=== PATIENT | male | born 1990 | race Caucasian/White ===

== ENCOUNTER 2016-06-15 09:32 | Emergency (ER) | payer OTHER ==
--- NOTE | 2016-06-15 11:53 | ED.PDOC ---
History of Present Illness - General Chief Complaint: Post Op Problems Stated Complaint: coughing up blood s/p shoulder surgery Time Seen by Provider: 06/15/16 09:52 Source: patient Exam Limitations: no limitations - History of Present Illness Initial Comments: the patient is a 25-year-old male presenting to the emergency room secondary to coughing up blood for the last week. it has been intermittent and in small quantities. He is not experiencing chest pain or shortness of breath. The patient had his right shoulder operated on last week and did have general anesthesia for this. He started to develop these symptoms one day after the surgery. He has had his right shoulder immobilized since that time. He is not having unusual pain or swelling given the surgery. He is not having any pain or swelling in his lower extremities. No syncopal or near syncope. No palpitations. He does have a history of some sinus issues. Clinical exam does show some brown bloody drainage down the posterior oropharynx from the right nares. Nasal laryngoscopy performed by me shows no blood coming from around his vocal cords. He does have an area of bleeding in the right nares posteriorly. This is possibly from an NG tube or a nasopharyngeal tube used by anesthesia during the surgery. No anterior epistaxis. Timing/Duration: 1 week Severity: mild Improving Factors: nothing Worsening Factors: nothing Associated Symptoms: denies symptoms Allergies/Adverse Reactions: Allergies NO KNOWN ALLERGY Allergy (Verified 06/15/16 09:51) Home Medications: Ambulatory Orders Hydrocodone-Acetaminophen [Hydrocodone/Acetaminophen 7.5-325 mg] 1 tab PO PRN PRN 06/15/16 Ibuprofen 600 mg PO QID 06/15/16 Methocarbamol 500 mg PO PRN 06/15/16 Review of Systems - Review of Systems Constitutional: States: no symptoms reported EENTM: States: nose congestion, throat pain - since the surgery Respiratory: States: cough Cardiology: States: no symptoms reported Gastrointestinal/Abdominal: States: no symptoms reported Genitourinary: States: no symptoms reported Musculoskeletal: States: see HPI Skin: States: no symptoms reported Neurological: States: no symptoms reported Endocrine: States: no symptoms reported All other Systems: No Change from Baseline Past Medical History (General) - Patient Medical History Hx Asthma: No - Vaccination History Hx Influenza Vaccination: No Hx Pneumococcal Vaccination: No - Social History Hx Tobacco Use: No Hx Alcohol Use: No Hx Substance Use: No Hx Substance Use Treatment: No Hx Depression: No - Activities of Daily Living Hospice Agency (if applicable):: None - Female History Patient is a Female of Child Bearing Age (10 -59 yrs old): No Patient : No Family Medical History - Family History Mother Family History: Unknown Physical Exam - Physical Exam General Appearance: Alert, Comfortable, No apparent distress Eye Exam: bilateral normal Ears, Nose, Throat: hearing grossly normal, other - small amount of dried blood in the right posterior oropharynx. Nares is stated above. Neck: non-tender, full range of motion, supple Respiratory: chest non-tender, lungs clear, normal breath sounds, no respiratory distress, no accessory muscle use Cardiovascular/Chest: normal peripheral pulses, regular rate, rhythm, no edema Peripheral Pulses: radial,right: 2+, radial,left: 2+ Rectal Exam: deferred Back Exam: normal inspection, no CVA tenderness, no vertebral tenderness Extremity: no pedal edema, no calf tenderness, normal capillary refill, other - right upper extremity is immobilized of course no undue swelling. 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 The initial concern is of course for a DVT and pulmonary embolus. No d-dimer is done as the patient just had surgery. Right upper extremity venous Doppler is negative for any blood clot. Nasolaryngoscopy indicates that the bleeding is likely coming from the right nares posteriorly and draining down the posterior oropharynx and being coughed up. given these findings, I feel that the patient has low probability for a pulmonary embolus, and further exposure to significant radiation in the form of a CT scan at this time is not warranted given the associated risks. the patient needs to obtain some [place] nasal spray and put one to 2 sprays in each nares every couple of hours for the next 3-4 days. Additionally sleeping with a humidifier on may help. Recommend that he follow-up with his primary care doctor towards the end of the week. ER warnings were given for any significant worsening or change in symptoms. - Results/Orders Results/Orders: right upper extremity venous ultrasound showed no evidence of any venous thrombosis. Departure - Departure Clinical Impression: Posterior epistaxis Disposition: Discharge to Home or Self Care Condition: Fair Departure Forms: ED Discharge - Pt. Copy, Patient Portal Self Enrollment Instructions: DI for Nosebleed Diet: regular diet Activity: no pushing/pulling with affected limb Referrals: Venancio Shanks MD [Primary Care Provider] - 1-5 Days Home Medications: Ambulatory Orders Hydrocodone-Acetaminophen [Hydrocodone/Acetaminophen 7.5-325 mg] 1 tab PO PRN PRN 06/15/16 Ibuprofen 600 mg PO QID 06/15/16 Methocarbamol 500 mg PO PRN 06/15/16 Additional Instructions: the patient is a 25-year-old male presenting due to coughing up blood since his surgery last week. The initial concern is of course for a DVT and pulmonary embolus. No d-dimer is done as the patient just had surgery. Right upper extremity venous Doppler is negative for any blood clot. Nasolaryngoscopy indicates that the bleeding is likely coming from the right nares posteriorly and draining down the posterior oropharynx and being coughed up. given these findings, I feel that the patient has low probability for a pulmonary embolus, and further exposure to significant radiation in the form of a CT scan at this time is not warranted given the associated risks. the patient needs to obtain some [place] nasal spray and put one to 2 sprays in each nares every couple of hours for the next 3-4 days. Additionally sleeping with a humidifier on may help. Recommend that he follow-up with his primary care doctor towards the end of the week. ER warnings were given for any significant worsening or change in symptoms.
--- NOTE | 2016-06-15 12:00 | US ---
EXAM DESCRIPTION: Venous,Upper Extremity RT CLINICAL HISTORY: bloody sputum 1 week post op. Swelling. COMPARISON: None Available. TECHNIQUE: Right upper extremity venous grayscale, spectral, and color Doppler sonographic images. FINDINGS: There is no DVT identified. There is normal color flow observed with good flow augmentation. All deep veins compress normally. IMPRESSION: Negative for DVT Electronically signed by: Joao Restrepo MD 06/15/2016 11:55 AM CDT
[2016-06-15 12:06] VITALS: BP 138/101; TEMP 98.8; O2SAT 95
== END 2016-06-15 12:06 | disposition home or self-care (01) ==
LOC: ER 09:32
DX: R04.0 Epistaxis (principal); Z98.890 Other specified postprocedural states